=== PATIENT | female | born 1935 | race Caucasian/White ===

== ENCOUNTER → 2016-12-01 | Outpatient (CLI) | payer MEDICARE ==
[~2016-12-01] MED LIST: ALBUTEROL SULFAT3 M3 IH; AMLOPIDINE PO; ASPI81CT18 PO; ASPIRIN 32325 MG/TAB PO; ASPIRIN E.C. 8181 MG PO; BENICAR 20MG TA20 MG PO; BENICAR40 MG PO; CALCIUM & MAGNE1 CAP PO; CALCIUM/MAGNESI1 T18 PO; CARDI-OMEGA1000 MG PO; CENTRUM SILVER1 TA1 PO; CHROMIUM PICO200 MC2 PO; CHROMIUM200 MCG PO; COLACE 100100 MG/CAP PO; COQ(10)1010 MG PO; COZAAR 50MG50 MG/TAB PO; CUBICIN 500MG500 MG IV; DULERA1 AR1 IH; FISH OIL 1000MG1 CAP PO; FISH OIL CONC1000 MG PO; FISH OIL1000 MG PO; FLAX OIL1000 MG PO; FLAXSEED OIL1000 MG PO; FLONASE NASAL S16 GM NS; FLONASEALLERGY NS; FLOVENT DI50 MCG/Act IH; FLOVENT HF0.11 MG/AC IH; FOLIC ACID 40400 MCG PO; GARLIC OIL 101000 MG PO; GARLIC OIL NATUR1 MG PO; GARLIC500 M2 PO; GENTLE LAXATIVE5 MG PO; HCTZ 25MG TAB25 MG PO; HCTZ 25MG25 MG PO; IRON65 MG PO; LEVOTHROID0.112 MG PO; LEVOTHYROXINE0.1 MG PO; LISINOPRIL10 MG PO; LOPRESSOR 225 MG/TAB PO; LOPRESSOR 550 MG/TAB PO; MASON NATURAL1000 M1 PO; METOPROLOL SUCC50 MG PO; METOPROLOL25 MG PO; MILK OF MAGNESI30 M1 PO; MINOCYCLIN100 MG/CAP PO; MUCINEX600 M1 PO; NATURAL MAGNES200 MG PO; NORVASC 10MG10 MG PO; NORVASC 5MG5 MG/TAB PO; NORVASC2.5 MG PO; NORVASC5 MG PO; OMEGA 31000 MG PO; OSCAL 500 TAB500 MG PO; PHARMASSURE CHE30 MG PO; PHENERGAN 25 TA25 MG PO; PREDNISONE 2.52.5 MG; PREDNISONE10 MG PO; PREDNISONE5 MG PO; PREVACID 15MG15 M1 PO; PREVACID 30MG30 M1 PO; PREVACID 30MG30 MG PO; PREVACID30 M1 PO; SENOKOT S 50 MG1 TAB PO; SINGULAIR 110 MG/TAB PO; SINGULAIR10 MG PO; SYNTHROID0.088 MG/T PO; SYNTHROID0.1 MG/TAB PO; TIROSINT88 MC1 PO; TOPROL XL 50MG50 MG PO; TRAMADOL HCL50 MG PO; TYLENOL 325MG325 MG PO; TYLENOL 500MG500 MG PO; ULTRACET 325 MG1 TAB PO; ULTRAM 50MG TAB50 MG PO; ULTRAM100 MG PO; VANCOCIN HCL500 MG IV; VITAMIN C500 MG PO; VITAMIN D1000 IU PO; VITAMIN D2000 I1 PO; VITAMIN D3400 I1 PO; VITAMINC1000TA PO; VITAMIND3 5000 PO; ZESTRIL 10MG10 MG PO; ZOCOR 10MG10 MG PO; ZOFRAN8 MG PO; [UNRECOGNIZED DRUG - OTHER] PO; [UNRECOGNIZED DRUG - OTHER] PO; [UNRECOGNIZED DRUG - OTHER] PO
== END ==
LOC: WCC 08:28
DX: T81.31XA Disruption of external operation (surgical) wound, not elsewhere classified, initial encounter (principal)
CPT/HCPCS: 17717; 27510; A6197; A6212; G0463

== ENCOUNTER → 2016-12-10 | Outpatient (CLI) | payer MEDICARE | LOC: WCC 09:35 | DX: T81.31XA Disruption of external operation (surgical) wound, not elsewhere classified, initial encounter (principal) | CPT/HCPCS: 17717; 27510; A6197; A6212; G0463 ==

== ENCOUNTER 2017-01-06 05:47 | Day surgery (SDC) | payer MEDICARE ==
[~2017-01-06] VITALS: Ht 147.3 cm; Wt 83.3 kg
[2017-01-06] VITALS (11 sets, daily range): BP systolic 131–159; BP diastolic 45–86; PULSE 45–93; TEMP 97.2–98
[~2017-01-06 05:47] MED LIST changes: -FISH OIL 1000MG1 CAP PO; -FLAXSEED OIL1000 MG PO; -NATURAL MAGNES200 MG PO; -OSCAL 500 TAB500 MG PO; -PHARMASSURE CHE30 MG PO; -TIROSINT88 MC1 PO; -VITAMIN D3400 I1 PO
[2017-01-06] MEDS ORDERED: VITAMINC1000TA PO (07:17)
[2017-01-06] MEDS ORDERED: ASPIRIN 32325 MG/TAB PO (07:17)
[2017-01-06] MEDS ORDERED: FLAXSEED OIL1000 MG PO (07:18)
[2017-01-06] MEDS ORDERED: PREVACID 30MG30 M1 PO (07:18)
[2017-01-06] MEDS ORDERED: TIROSINT88 MC1 PO (07:19)
[2017-01-06] MEDS ORDERED: LOPRESSOR 225 MG/TAB PO (07:19)
[2017-01-06] MEDS ORDERED: COLACE 100100 MG/CAP PO (07:19)
[2017-01-06] MEDS ORDERED: ULTRAM 50MG TAB50 MG PO (07:20)
[2017-01-06] MEDS ORDERED: CHROMIUM PICO200 MC2 PO (07:20)
[2017-01-06] MEDS ORDERED: NORVASC 10MG10 MG PO (07:20)
[2017-01-06] MEDS ORDERED: LOPRESSOR 550 MG/TAB PO (07:21)
[2017-01-06] MEDS ORDERED: FISH OIL 1000MG1 CAP PO (07:21)
[2017-01-06] MEDS ORDERED: SINGULAIR 110 MG/TAB PO (07:21)
[2017-01-06] MEDS ORDERED: ZOCOR 10MG10 MG PO (07:21)
[2017-01-06] MEDS ORDERED: OSCAL 500 TAB500 MG PO (07:22)
[2017-01-06] MEDS ORDERED: VITAMIN D3400 I1 PO (07:22)
[2017-01-06] MEDS ORDERED: PHARMASSURE CHE30 MG PO (07:23)
[2017-01-06] MEDS ORDERED: NATURAL MAGNES200 MG PO (07:23)
[2017-01-07 04:56] VITALS: BP 153/50; PULSE 57; TEMP 97.8
[2017-01-07 07:08] LABS: HEMATOCRIT 38.6 % (37.0-47.0)
[2017-01-07 09:37] VITALS: BP 127/60; PULSE 62; TEMP 98.7
== END 2017-01-07 14:38 | disposition home or self-care (01) ==
LOC: SDCO 05:47 → SURG 10:00 → SDCO 01-07 14:38
PROVIDERS: Physician Assistant
DX: T84.7XXA Infection and inflammatory reaction due to other internal orthopedic prosthetic devices, implants and grafts, initial encounter (principal); M25.372 Other instability, left ankle; Z96.662 Presence of left artificial ankle joint; Z85.828 Personal history of other malignant neoplasm of skin
CPT/HCPCS: OP; A9284; C1713; G8978-GP; G8979-GP; J0690; J1100; J2250; J2405; J2704; J3010; J3370; J7050; J7120

== ENCOUNTER → 2017-09-07 | Outpatient (CLI) | payer MEDICARE ==
[~2017-09-07] MED LIST changes: +FISH OIL 1000MG1 CAP PO; +FLAXSEED OIL1000 MG PO; +NATURAL MAGNES200 MG PO; +OSCAL 500 TAB500 MG PO; +PHARMASSURE CHE30 MG PO; +TIROSINT88 MC1 PO; +VITAMIN D3400 I1 PO
== END ==
LOC: COL.RAD 11:58
DX: M48.061 Spinal stenosis, lumbar region without neurogenic claudication (principal); M48.04 Spinal stenosis, thoracic region; M51.26 Other intervertebral disc displacement, lumbar region; M51.24 Other intervertebral disc displacement, thoracic region; M25.78 Osteophyte, vertebrae; Z98.890 Other specified postprocedural states
CPT/HCPCS: A9585

== ENCOUNTER 2017-11-11 10:30 | Outpatient (RCR) | payer MEDICARE ==
[~2017-11-11] VITALS: Ht 147.3 cm; Wt 86.8 kg
[2017-11-11 11:14] VITALS: BP 138/49; PULSE 52; TEMP 97.6
== END 2017-11-11 11:45 | disposition home or self-care (01) ==
LOC: EUO 10:30
DX: M81.0 Age-related osteoporosis without current pathological fracture (principal)
CPT/HCPCS: J3489

== ENCOUNTER → 2017-12-14 | Outpatient (CLI) | payer MEDICARE | LOC: MHCPAIN 11:29 | DX: G89.29 Other chronic pain (principal); M47.27 Other spondylosis with radiculopathy, lumbosacral region; M53.3 Sacrococcygeal disorders, not elsewhere classified; M96.1 Postlaminectomy syndrome, not elsewhere classified | CPT/HCPCS: G0463 ==

== ENCOUNTER 2018-01-18 07:14 | Day surgery (SDC) | payer MEDICARE ==
[~2018-01-18] VITALS: Ht 147.3 cm; Wt 81.8 kg
[2018-01-18] VITALS (12 sets, daily range): BP systolic 121–179; BP diastolic 54–102; PULSE 49–92; TEMP 97.3
[2018-01-18 07:37] LABS: HEMATOCRIT 40.8 % (37.0-47.0); HEMOGLOBIN 13.7 g/dl (12.5-16.0); MEAN CELL VOLUME 95 fl (80.0-100.0); MEAN CORPUSCULAR HEMOGLOBIN 32 pg (27.0-31.0); MEAN CORPUSCULAR HGB CONC 34 g/dl (33.0-37.0); MEAN PLATELET VOLUME 10.9 fl (7.4-10.4); PLATELET COUNT 285 K/mm3 (130-400)
[2018-01-18 07:47] LABS: CALCIUM 10.7 mg/dL (8.4-10.2); CREATININE, serum 1.01 mg/dL (0.52-1.25); POTASSIUM 4.8 mmol/L (3.4-5.0)
[2018-01-18 07:53] LABS: PROTHROMBIN TIME 11.4 SECONDS (9.7-12.8)
[2018-01-18] MEDS ORDERED: APRESOLINE 10MG10 MG PO (08:43)
[2018-01-18] MEDS ORDERED: VITAMIN B COMPL1 SGL PO (08:44)
[2018-01-18] MEDS ORDERED: CLEOCIN HCL300 MG PO (10:43)
== END 2018-01-18 15:33 | disposition home or self-care (01) ==
LOC: COL.CAR 07:14
PROVIDERS: Internal Medicine Cardiovascular Disease
DX: I25.10 Atherosclerotic heart disease of native coronary artery without angina pectoris (principal); I48.0 Paroxysmal atrial fibrillation; I08.0 Rheumatic disorders of both mitral and aortic valves; E78.5 Hyperlipidemia, unspecified; I13.0 Hypertensive heart and chronic kidney disease with heart failure and stage 1 through stage 4 chronic kidney disease, or unspecified chronic kidney disease; N18.9 Chronic kidney disease, unspecified; I50.9 Heart failure, unspecified; G47.33 Obstructive sleep apnea (adult) (pediatric); E66.9 Obesity, unspecified; R06.00 Dyspnea, unspecified; J45.909 Unspecified asthma, uncomplicated; G62.9 Polyneuropathy, unspecified; G89.29 Other chronic pain; Z88.5 Allergy status to narcotic agent; Z88.0 Allergy status to penicillin; Z79.82 Long term (current) use of aspirin; Z68.37 Body mass index [BMI] 37.0-37.9, adult; Z88.2 Allergy status to sulfonamides; Z88.1 Allergy status to other antibiotic agents; Z88.6 Allergy status to analgesic agent; Z88.8 Allergy status to other drugs, medicaments and biological substances; Z90.710 Acquired absence of both cervix and uterus; Z96.653 Presence of artificial knee joint, bilateral; Z96.611 Presence of right artificial shoulder joint; Z96.612 Presence of left artificial shoulder joint; Z82.49 Family history of ischemic heart disease and other diseases of the circulatory system
CPT/HCPCS: J2250; J2704; J2765; J3010

== ENCOUNTER 2018-04-08 08:00 | Day surgery (SDC) | payer MEDICARE ==
[~2018-04-08] VITALS: Ht 147.3 cm; Wt 84.3 kg
[2018-04-08] VITALS (10 sets, daily range): BP systolic 140–174; BP diastolic 51–64; PULSE 59–67; TEMP 97.4–97.9
[~2018-04-08 08:00] MED LIST changes: +APRESOLINE 10MG10 MG PO; +CLEOCIN HCL300 MG PO; -TYLENOL 500MG500 MG PO; +TYLENOL 8 HR PO; +VITAMIN B COMPL1 SGL PO
[2018-04-09 03:53] VITALS: BP 148/52; PULSE 59; TEMP 97.6
[2018-04-09 07:38] VITALS: BP 155/57; PULSE 60; TEMP 98
[2018-04-09] MEDS ORDERED: CLEOCIN HCL300 MG PO (11:26)
[2018-04-09] MEDS ORDERED: MULTAQ400 MG PO (11:26)
[2018-04-09 11:37] VITALS: BP 153/61; PULSE 61; TEMP 98.5
== END 2018-04-09 14:57 ==
LOC: COL.CAR 08:00 → MEDICAL 13:27 → COL.CAR 04-09 14:57
DX: I49.5 Sick sinus syndrome (principal); I48.0 Paroxysmal atrial fibrillation; G47.33 Obstructive sleep apnea (adult) (pediatric); Z88.6 Allergy status to analgesic agent; Z88.0 Allergy status to penicillin; Z88.1 Allergy status to other antibiotic agents; Z88.2 Allergy status to sulfonamides; Z88.5 Allergy status to narcotic agent; Z88.8 Allergy status to other drugs, medicaments and biological substances; Z91.030 Bee allergy status; Z88.4 Allergy status to anesthetic agent
CPT/HCPCS: OP; C1769; C1785; C1894; C1898; J2250; J3010; J3370; J7030; J7050

== ENCOUNTER → 2018-06-08 | Outpatient (CLI) | payer MEDICARE ==
[~2018-06-08] MED LIST changes: +BETAPACE 80MG80 MG PO; +MULTAQ400 MG PO
== END ==
LOC: MC.RAD 08:20
DX: Z12.31 Encounter for screening mammogram for malignant neoplasm of breast (principal); N64.89 Other specified disorders of breast

== ENCOUNTER → 2018-06-10 | Outpatient (CLI) | payer MEDICARE | LOC: MC.RAD 12:34 | DX: R92.2 Inconclusive mammogram (principal); N64.89 Other specified disorders of breast ==

== ENCOUNTER → 2018-06-18 | Outpatient (CLI) | payer MEDICARE | LOC: COL.VAS 10:00 | DX: I35.1 Nonrheumatic aortic (valve) insufficiency (principal); I07.1 Rheumatic tricuspid insufficiency; I34.0 Nonrheumatic mitral (valve) insufficiency ==

== ENCOUNTER → 2018-08-13 | Outpatient (CLI) | payer MEDICARE | LOC: COL.PUL 07-19 13:00 | DX: R06.02 Shortness of breath (principal) | CPT/HCPCS: J7674 ==

== ENCOUNTER 2018-12-08 14:03 | Emergency (ER) | payer MEDICARE ==
[~2018-12-08] VITALS: Ht 144.8 cm; Wt 80.5 kg
[2018-12-08 14:09] VITALS: TEMP 97
[2018-12-08] MEDS ORDERED: NORVASC 10MG10 MG PO (14:34)
[2018-12-08] MEDS ORDERED: ISORDIL TITRADO30 MG PO (14:36)
[2018-12-08] MEDS ORDERED: LASIX 20MG TABL20 MG PO (14:36)
[2018-12-08] MEDS ORDERED: VELTASSA8.4 GM PO (14:37)
[2018-12-08] MEDS ORDERED: TYLENOL 8 HR PO (14:38)
[2018-12-08] MEDS ORDERED: 00186-0370-20 IH (14:38)
[2018-12-08] MEDS ORDERED: COUMADIN4 MG PO (14:41)
[2018-12-08 15:15] LABS: INR 1.7 (0.8-3.0); PROTHROMBIN TIME 19.2 SECONDS (9.7-12.8)
[2018-12-08 16:35] VITALS: BP 174/72; PULSE 76
== END 2018-12-08 16:35 | disposition home or self-care (01) ==
LOC: COL.ER 14:03
PROVIDERS: Physician Assistant
DX: S00.93XA Contusion of unspecified part of head, initial encounter (principal); R04.2 Hemoptysis; J45.909 Unspecified asthma, uncomplicated; I48.91 Unspecified atrial fibrillation; I10 Essential (primary) hypertension; K21.9 Gastro-esophageal reflux disease without esophagitis; M06.9 Rheumatoid arthritis, unspecified; G47.30 Sleep apnea, unspecified; Z79.82 Long term (current) use of aspirin; Z79.891 Long term (current) use of opiate analgesic; Z79.01 Long term (current) use of anticoagulants; W18.30XA Fall on same level, unspecified, initial encounter; W22.8XXA Striking against or struck by other objects, initial encounter; Y92.009 Unspecified place in unspecified non-institutional (private) residence as the place of occurrence of the external cause

== ENCOUNTER → 2018-12-21 | Outpatient (CLI) | payer MEDICARE ==
[~2018-12-21] MED LIST changes: +00186-0370-20 IH; +COUMADIN4 MG PO; +ISORDIL TITRADO30 MG PO; +LASIX 20MG TABL20 MG PO; +VELTASSA8.4 GM PO
== END ==
LOC: COL.CARD 08:18
DX: R03.0 Elevated blood-pressure reading, without diagnosis of hypertension (principal)

== ENCOUNTER 2019-01-21 22:19 | Emergency (ER) | payer MEDICARE ==
[~2019-01-21] VITALS: Ht 144.8 cm; Wt 80.5 kg
[2019-01-21 22:24] VITALS: TEMP 97.5
[2019-01-22 01:04] LABS: BASO # 0.1 (0.0-0.2); BASO % 0.5 % (0.0-2.0); EOS # 0.1 (0.0-0.7); EOS % 1.1 % (0-4.0); GRAN # 9.5 (1.4-6.5); GRAN % 75.7 % (42.2-75.2); HEMATOCRIT 38.2 % (37.0-47.0); HEMOGLOBIN 12.6 g/dl (12.5-16.0); LYMPH % 16.1 % (20.0-51.0); MEAN CELL VOLUME 97 fl (80.0-100.0); MEAN CORPUSCULAR HEMOGLOBIN 32 pg (27.0-31.0); MEAN CORPUSCULAR HGB CONC 33 g/dl (33.0-37.0); MEAN PLATELET VOLUME 10.7 fl (7.4-10.4); MONO # 0.8 (0.1-0.6); MONO % 6.2 % (1.7-9.3); PLATELET COUNT 244 K/mm3 (130-400); RED BLOOD COUNT 3.92 M/mm3 (4.10-5.30)
[2019-01-22 01:10] LABS: ALBUMIN 4.2 gm/dL (3.5-5.0); BILIRUBIN,TOTAL 0.5 mg/dL (0.0-1.0); CALCIUM 9.6 mg/dL (8.4-10.2); CREATININE, serum 0.81 (0.52-1.25); POTASSIUM 4.7 mmol/L (3.4-5.0); TOTAL PROTEIN 7.9 gm/dL (6.4-8.2)
[2019-01-22 01:19] LABS: INR 1.6 (0.8-3.0)
[2019-01-22 02:01] LABS: COLLECTION METHOD CLEAN CATCH
[2019-01-22 02:07] LABS: PH 6 (5-8); SQUAMOUS EPITHELIAL 0-2 /hpf; URINE APPEARANCE Clear; URINE BACTERIA Rare /hpf; URINE BILIRUBIN Negative (NEGATIVE); URINE BLOOD Negative (NEGATIVE); URINE COLOR Yellow; URINE GLUCOSE Negative (NEGATIVE); URINE KETONE Negative (NEGATIVE); URINE LEUKOCYTE ESTERASE Negative (NEGATIVE); URINE NITRATE Negative (NEGATIVE); URINE PROTEIN(semi-quant) 2+ (NEGATIVE); URINE RBC 0-2 /hpf; URINE UROBILINOGEN Negative (NEGATIVE)
[2019-01-22] MEDS ORDERED: LIDODERM 5% PATC1 EA TP (02:12)
[2019-01-22] MEDS ORDERED: ULTRAM 50MG TAB50 MG PO (02:18)
[2019-01-22 02:24] VITALS: BP 168/78; PULSE 74
== END 2019-01-22 02:24 | disposition home or self-care (01) ==
LOC: COL.ER 22:19
PROVIDERS: Emergency Medicine
DX: S22.42XA Multiple fractures of ribs, left side, initial encounter for closed fracture (principal); I10 Essential (primary) hypertension; J44.9 Chronic obstructive pulmonary disease, unspecified; I48.91 Unspecified atrial fibrillation; E78.00 Pure hypercholesterolemia, unspecified; Z79.01 Long term (current) use of anticoagulants; W16.212A Fall in (into) filled bathtub causing other injury, initial encounter; Y93.E1 Activity, personal bathing and showering; Y92.002 Bathroom of unspecified non-institutional (private) residence as the place of occurrence of the external cause

== ENCOUNTER → 2019-08-10 | Outpatient (CLI) | payer MEDICARE ==
[~2019-08-10] MED LIST changes: +LIDODERM 5% PATC1 EA TP
== END ==
LOC: ZCOL.LAB 16:43
DX: H92.12 Otorrhea, left ear (principal)

== ENCOUNTER → 2019-09-21 | Outpatient (CLI) | payer MEDICARE | LOC: COL.LAB 11:22 | DX: I27.20 Pulmonary hypertension, unspecified (principal); J45.909 Unspecified asthma, uncomplicated ==

== ENCOUNTER → 2020-10-17 | Outpatient (CLI) | payer MEDICARE | LOC: ZCOL.LAB 16:28 | DX: L97.909 Non-pressure chronic ulcer of unspecified part of unspecified lower leg with unspecified severity (principal) ==

== ENCOUNTER → 2020-11-15 | Outpatient (CLI) | payer MEDICARE | LOC: ZCOL.LAB 16:42 | DX: L97.909 Non-pressure chronic ulcer of unspecified part of unspecified lower leg with unspecified severity (principal) ==

== ENCOUNTER 2020-12-14 09:31 | Emergency (ER) | payer MEDICARE ==
[~2020-12-14] VITALS: Ht 147.3 cm; Wt 75.0 kg
[2020-12-14 09:47] VITALS: BP 157/72; TEMP 96.5
[2020-12-14] MEDS ORDERED: AQUAPHOR OINTM396 GM TP (10:24)
[2020-12-14 10:55] VITALS: PULSE 90
== END 2020-12-14 10:55 | disposition home or self-care (01) ==
LOC: COL.ER 09:31
DX: L85.3 Xerosis cutis (principal); I10 Essential (primary) hypertension; I48.91 Unspecified atrial fibrillation; J45.909 Unspecified asthma, uncomplicated; E07.9 Disorder of thyroid, unspecified; Z79.82 Long term (current) use of aspirin; Z85.828 Personal history of other malignant neoplasm of skin; Z79.51 Long term (current) use of inhaled steroids; Z79.01 Long term (current) use of anticoagulants; Z88.6 Allergy status to analgesic agent; Z88.2 Allergy status to sulfonamides; Z88.1 Allergy status to other antibiotic agents; Z88.8 Allergy status to other drugs, medicaments and biological substances

== ENCOUNTER → 2021-01-03 | Outpatient (CLI) | payer MEDICARE ==
[~2021-01-03] MED LIST changes: +AQUAPHOR OINTM396 GM TP
== END ==
LOC: ZCOL.LAB 16:35
DX: S81.802A Unspecified open wound, left lower leg, initial encounter (principal)

== ENCOUNTER → 2021-10-23 | Outpatient (CLI) | payer MEDICARE | LOC: COL.RAD 09:15 | DX: M25.561 Pain in right knee (principal); G89.29 Other chronic pain; Z96.651 Presence of right artificial knee joint | CPT/HCPCS: A9503 ==

== ENCOUNTER 2022-04-08 10:39 | Emergency (ER) | payer MEDICARE ==
[~2022-04-08] VITALS: Ht 144.8 cm; Wt 72.7 kg
[2022-04-08 10:50] VITALS: BP 175/66; TEMP 97.5
[2022-04-08] MEDS ORDERED: NEURONTIN100 MG/CAP PO (11:00)
[2022-04-08] MEDS ORDERED: ZANAFLEX 4MG TAB4 MG PO (11:01)
[2022-04-08] MEDS ORDERED: LASIX 20MG TABL20 MG PO (11:02)
[2022-04-08] MEDS ORDERED: LIPITOR20 MG PO (11:08)
[2022-04-08 12:15] LABS: BASO # 0.1 K/mm3 (0.0-0.2); BASO % 0.7 % (0.0-2.0); EOS # 0.2 K/mm3 (0.0-0.7); EOS % 2.6 % (0.0-4.0); GRAN # 5.5 K/mm3 (1.4-6.5); LYMPH # 1.9 K/mm3 (1.2-3.4); MEAN CELL VOLUME 97 fl (80.0-100.0); MEAN CORPUSCULAR HGB CONC 33 g/dl (33.0-37.0); MEAN PLATELET VOLUME 10.7 fl (7.4-10.4); MONO # 0.9 K/mm3 (0.1-0.6); MONO % 10.2 % (1.7-9.3); PLATELET COUNT 334 K/mm3 (130-400); RED BLOOD COUNT 2.69 M/mm3 (4.10-5.30); REDCELL DISTRIBUTION WIDTH-CV 14.8 % (11.5-14.5)
[2022-04-08 12:17] LABS: HEMATOCRIT 26.2 % (37.0-47.0); HEMOGLOBIN 8.7 g/dl (12.5-16.0); MEAN CORPUSCULAR HEMOGLOBIN 32 pg (27-31)
[2022-04-08 12:20] LABS: INR 3.4 (0.8-3.0); PROTHROMBIN TIME 39.4 SECONDS (9.7-12.8)
[2022-04-08 12:35] LABS: BILIRUBIN,TOTAL 0.9 mg/dL (0.2-1.2); CALCIUM 9.2 mg/dL (8.4-10.2); CREATININE, serum 0.95 mg/dL (0.57-1.11); POTASSIUM 4.3 mmol/L (3.5-4.5); TOTAL PROTEIN 6.4 gm/dL (6.2-8.1)
[2022-04-08 13:15] VITALS: PULSE 81
== END 2022-04-08 13:16 | disposition home or self-care (01) ==
LOC: COL.ER 10:39
PROVIDERS: Family Medicine
DX: M79.661 Pain in right lower leg (principal); Z96.651 Presence of right artificial knee joint

== ENCOUNTER 2022-04-28 14:26 | Emergency (ER) | payer MEDICARE ==
[~2022-04-28] VITALS: Ht 144.8 cm; Wt 66.4 kg
[~2022-04-28 14:26] MED LIST changes: +IMDUR 30MG30 MG/TAB PO; -ISORDIL TITRADO30 MG PO; +LIPITOR20 MG PO; +NEURONTIN100 MG/CAP PO; +ZANAFLEX 4MG TAB4 MG PO
[2022-04-28 14:54] VITALS: TEMP 98.3
[2022-04-28] MEDS ORDERED: CHROMIUM PICOLI1 TA8 PO (15:04)
[2022-04-28] MEDS ORDERED: CILOXAN .3% EY2.5 ML OP (15:05)
[2022-04-28] MEDS ORDERED: BETAPACE 120MG120 MG PO (15:08)
[2022-04-28] MEDS ORDERED: COUMADIN4 MG PO (15:10)
[2022-04-28] MEDS ORDERED: VELTASSA8.4 GM PO (15:10)
[2022-04-28 17:47] VITALS: BP 117/79; PULSE 63
== END 2022-04-28 17:55 | disposition home or self-care (01) ==
LOC: COL.ER 14:26
DX: U07.1 COVID-19 (principal)
CPT/HCPCS: M0222; Q0222

== ENCOUNTER → 2022-06-24 | Outpatient (CLI) | payer MEDICARE ==
[~2022-06-24] MED LIST changes: +BETAPACE 120MG120 MG PO; +CHROMIUM PICOLI1 TA8 PO; +CILOXAN .3% EY2.5 ML OP
== END ==
LOC: COL.RAD 14:42
DX: R60.0 Localized edema (principal)

== ENCOUNTER 2023-06-22 13:46 | Emergency (ER) | payer MEDICARE ==
[~2023-06-22] VITALS: Ht 144.8 cm; Wt 69.5 kg
[~2023-06-22 13:46] MED LIST changes: +APRESOLINE50 MG PO; +ASPIRIN 81M81 MG/TA2 PO; +IMIQUIMOD5% TP; +OMNICEF 300MG300 MG PO; +PREDNISONE 5MG5 MG PO
[2023-06-22 14:03] VITALS: TEMP 97.4
--- NOTE | 2023-06-22 15:47 | NUR ---
CORINNE received a referral from the ED that pt is in the ER with her granddtr, Jannet Aaron, being evaluated for possible gangrene in her left foot. CORINNE met with pt and her granddtr @ the bedside and according to her granddtr, pt's HCPOA that pt has been accepted to [facility] and was suppose to be admitted to the facility from home today. 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 CORINNE telephoned Consuelo, the coordinator of online programs @ [facility], ph# [phone], and she confirmed the inital admission, but it is now pending due to the results of pt's ER visit. Advised by ED Nurse that pt most likely will be discharged today, and Consuelo was also under that impression. Ms. Cordero asked CORINNE to faxed pt's ER notes to her so facility nursing can determine if they can admit. CORINNE faxed notes to Consuelo @ fax # [phone]. Lilian is aware if facility is unable to admit, she will have to take pt home. No other concerns noted.
[2023-06-22 16:40] VITALS: BP 130/88; PULSE 88
== END 2023-06-22 16:44 ==
LOC: COL.ER 13:46
DX: L97.529 Non-pressure chronic ulcer of other part of left foot with unspecified severity (principal)